=== PATIENT | female | born 1995 | race African-American/Black ===

== ENCOUNTER 2017-08-08 21:15 | Emergency (ER) | payer BC ==
[~2017-08-08] VITALS: Ht 157.5 cm; Wt 93.0 kg
[~2017-08-08 21:15] MED LIST: DEPAKOTE250 MG PO
[2017-08-08 21:21] VITALS: BP 130/88
[2017-08-08] MEDS ORDERED: LAMICTAL100 MG PO (22:26)
[2017-08-08] MEDS ORDERED: ZITHROMAX Z-PA250 MG PO (22:40)
[2017-08-08] MEDS ORDERED: DIFLUCAN150 MG PO (22:40)
[2017-08-08] MEDS ORDERED: PREDNISONE20 MG PO (22:40)
== END 2017-08-09 | disposition home or self-care (01) ==
LOC: EME 21:15
DX: R51 Headache (principal); J01.90 Acute sinusitis, unspecified; R05 Cough
CPT/HCPCS: 99281; 99283